=== PATIENT | female | born 1980 ===

== ENCOUNTER 2021-07-19 01:34 | Emergency (ER) | payer OTHER, SELFPAY ==
[2021-07-19 01:38] VITALS: BP 145/90; PULSE 116; RESP 18; TEMP 36.8; O2SAT 98
--- NOTE | 2021-07-19 01:45 | DI.CT_ITS ---
Exam(s) CT CHEST PE CTA EXAM: CT CHEST PE CTA CLINICAL HISTORY: chest pain, tachycardia. TECHNIQUE: Imaging Protocol: Axial CT angiography was performed with multi-slice acquisition and mu lti-planar reconstructions as well as axial, coronal and sagittal MIP reconstructions. CONTRAST MATERIAL: Intravenous: Omnipaque 350 Contrast volume:100 ml COMPARISON: No exams were available for comparison FINDINGS: Pulmonary Arteries: No evidence of filling defect to suggest pulmonary emboli. Tracheobronchial tree: Patent where visualized. Mediastinum and Griselda: No dominant adenopathy or fluid collection. Pulmonary parenchyma: No consolidation or dominant measurable mass. Expiratory changes. Pleura: No effusion or pneumothorax. Heart: The heart is not dilated. No coronary artery calcifications are seen. Aorta: Thoracic aorta non-dilated. No aneurysm. No dissection. Upper abdomen: Suture material at stomach. Bones: Unremarkable for age. IMPRESSION: No evidence of pulmonary embolism or other acute abnormality.. RADIATION DOSE DELIVERED: 451.68mGy.cm Total DLP DATA REPOSITORY: All CT scans at this facility are submitted to the National Radiology Data Registry (NRDR) Dose Index Registry (DIR) with the [employer] (ACR). RADIATION OPTIMIZATION: All CT scans at this facility use at least one of these dose optimization te chniques: automated exposure control; mA and/or kV adjustment per patient size (includes targeted exa ms where dose is matched to clinical indication); or iterative reconstruction.
--- NOTE | 2021-07-19 01:45 | RT.EKG_ITS ---
APPROVED REPORT Exam: Resting ECG Reason for Exam: chest pain Patient Location: E HR:115 bpm ECG Measurements Heart Rate 115 AXIS LA 162 P 55 QRSd 105 QRS 20 QT 331 T 40 QTc 457 Conclusion Sinus tachycardia...rate> 99 no stemi
--- NOTE | 2021-07-19 01:57 | ED.GENADUL_ITS ---
Discharge Plan Disposition Patient Disposition: HOME Condition: Stable Discharge Details Clinical Impression: Palpitations, Chest pain Primary Care Provider: Nisha Tirado ED Provider: Tr Vega Home Meds and New Rx's Prescriptions: Continued levothyroxine 112 mcg Tablet 224 mcg PO DAILY 0RF Discharge Instructions Instructions: Heart Palpitations (ED) Additional Instructions: Your ekg, blood work and cat scan did not show concerning findings at this time follow up as scheduled with your primary care provider next week if you feel more ill, have severe pain or difficulty breathing return to the emergency department Medical Decision Making 41 yo female with hx of hypothyroidism, gastric bypass, prior tubal ligation, who comes in with primary complaint of feeling as though her heart is pounding. She states this has been going on for 3 days and feels like her heart is beating harder than normal and can feel it. Denies any chest pressure. Has also had a mild frontal headache intermittently, not the worst of her life and when they start are not thunderclap or suddenly severe. Denies fevers though today she has felt cold per patient. She denies abdomen pain, rashes, smoking, alcohol or drug use. She arrives stable though mildly tachycardic. She is speaking in full sentences in no distress. She has clear lungs, no murmurs, caox4 with clear speech, CN II-XII. She states when she has a headache it is across the front of her head. Given the palpations will obtain ecg and troponin to evaluate for nstemi/acs though seems unlikely based on description of symptoms, heart score 2. She is tachycardic and given PE could be the cause of her symptoms will obtain CT chest. NOrmal vascular exam and no tearing back pain so doubt dissection. Will also obtain covid test. Her headaches seem most likely due to a tension headache, no findings on history or exam to suggest hemorrhage or quality assurance director infection so do not feel emergent ct imaging of the head indicated or LP indicated. labs and imaging unremarkable and she remains stable, feels better with fluids and HR now 90. Given symptoms have been present for 3 days do not feel delta troponin indicated. She does state she has had some stress/anxiety which could be causing her symptoms. She has a f/u appt with her pcp next , she is stable for d/c and return precautions given Differential Diagnosis Differential Diagnosis: arrythmia, anemia, pe, covid, Imaging Data Radiologic Study: Attestation: I personally reviewed and interpreted this imaging study as follows: Imaging: CT Scan Radiologist's impression: no acute findings Lab Data Lab results reviewed: Yes I reviewed the patient's lab results. ECG Data Attestation: I personally reviewed and interpreted this ECG (s) as follows: Prior ECG tracings: not available for review Interpretation: sinus tachycardia, rate of 115, no acute st t wave ischemic findings HPI General Mode of arrival: ambulatory . Date/Time Provider Initiated Documentation: 07/19/21 01:37 . Limitations to Documentation: no limitations . Information obtained by: patient . History of Present Illness 41 year old F p resents to the emergency department with the chief complaint of palpitations, described as moderate, Patient started experiencing this day(s) (3) and it has been constant. improves with No relieving factors improve symptom(s), No exacerbating factors reported . Patient notes headaches. Patient did receive the following treatments prior to arrival, none Related Data Home Medications Medication Instructions Recorded Confirmed levothyroxine 112 mcg tablet 224 mcg PO DAILY 07/19/21 07/19/21 Allergies Allergy/AdvReac Type Severity Reaction Status Date / Time No Known Allergies Allergy Unverified 07/19/21 01:44 General Stated Complaint: Fever CONSTANTINO: 5 Review of Systems All systems reviewed & are unremarkable except as noted in HPI and below Constitutional Constitutional: Denies fever(s) and Denies weakness Eyes Eyes: Denies loss of vision Cardiovascular Cardiovascular: Denies dyspnea Respiratory Respiratory: Denies dyspnea Gastrointestinal Gastrointestinal: Denies abdominal pain and Denies vomiting Genitourinary Genitourinary: Denies dysuria Musculoskeletal Musculoskeletal: Denies joint swelling Integumentary/Breasts Skin/Breast: Denies rash Neurologic Neurologic: Denies loss of vision and Denies weakness PFSH All Active Problems (Updated 07/19/21 @ 03:53 by Tr Vega MD) Palpitations (Acute) Chest pain (Acute) Social History Smoking/Tobacco Use Status: Never Smoking risk assessment performed?: Yes Alcohol Intake: never Substance use type: does not use Do you feel safe at home: Yes Do you feel safe in your relationship?: Yes Exam Const General: no acute distress Orientation: alert HENMT Head: normal to inspection Ears: external ears normal General nose exam: external nose normal Mouth: moist mucous membranes Eyes General: appearance normal, both eyes and all related structures Neck Neck: normal visual inspection Chest Chest: normal inspection of the chest Resp Effort & Inspection: normal respiratory effort and able to speak in complete sentences Cardio Jugular venous pressure: no JVD Rate: tachycardic GI Palpation: soft and nontender Skin General skin exam: no rashes or lesions noted Neuro General: patient alert and patient oriented x3 Extrem General: normal to inspection Psych Mental Status: mental status grossly normal Course Vital Signs Vital signs: Vital Signs Temperature 36.8 C 07/19/21 01:38 Pulse 116 H 07/19/21 01:38 Respiratory Rate 18 07/19/21 01:38 Blood Pressure 145/90 H 07/19/21 01:38 Pulse Oximetry 98 07/19/21 01:38 Temperature 36.8 C 07/19/21 01:38 Pulse 116 H 07/19/21 01:38 Respiratory Rate 18 07/19/21 01:38 Respiratory Effort 07/19/21 01:43 Blood Pressure 145/90 H 07/19/21 01:38 Blood Pressure Position Sitting 07/19/21 01:38 Pulse Oximetry 98 07/19/21 01:38 Oxygen Delivery Method Room Air 07/19/21 01:38 Oxygen Flow Rate 0 07/19/21 01:38 Pain Level 0 07/19/21 01:38
[2021-07-19] MEDS: Normal Saline 1,000 ML 1000 ML IV (02:08)
[2021-07-19 02:23] LABS: Abs Immature Grans 0.03 10^3/uL (0.0-0.06); Absolute Basophil Count 0.03 10^3/uL (0.0-0.2); Absolute Eosinophil Count 0.02 10^3/uL (0.0-0.7); Absolute Lymphocyte Count 0.75 10^3/uL (1.2-3.4); Absolute Monocyte Count 0.33 10^3/uL (0.1-0.8); Absolute Neutrophil Count 5.95 10^3/uL (1.2-6.7); Basophils % 0.4; Eosinophils % 0.3; HCT 39.2 % (36.0-46.0); HGB 12.9 g/dL (11.2-15.7); Immature Grans % 0.4; Lymphocytes % 10.5; MCH 28.4 pg (27.0-33.0); MCHC 32.9 % (32.0-36.0); MCV 86 fL (80-95); MPV 9.1 fL (8.0-11.0); Monocytes % 4.6; Neutrophils % 83.8; Platelet Count 224 10^3/uL (130-400); RBC 4.54 10^6/uL (3.93-5.22); RDW 11.5 % (11.7-14.6); WBC 7.11 10^3/uL (4.4-10.8)
[2021-07-19 02:32] LABS: ALT 53 U/L (14-59); AST 25 U/L (15-37); Albumin 3.4 g/dL (3.4-5.0); Alkaline Phosphatase 92 U/L (46-116); Anion Gap 9.2 mmol/L (3-11); BUN 10 mg/dL (7-18); Bilirubin, Total 0.8 mg/dL (0.2-1.0); CO2 25.8 mmol/L (21.0-32.0); CREATININE 0.7 mg/dL (0.55-1.02); Calcium 8.2 mg/dL (8.5-10.1); Chloride 105 mmol/L (98-107); Glucose 98 mg/dL (74-106); Potassium 3.9 mmol/L (3.5-5.1); Sodium 140 mmol/L (136-145); Total Protein 6.9 g/dL (6.4-8.2); Troponin I < 50 ng/L (<or=60)
[2021-07-19] MEDS: Omnipaque 350 MG/ML 100 ML BTL IJ (02:50)
--- NOTE | 2021-07-19 03:28 | DI.VRAD_ITS ---
PROCEDURE INFORMATION: Exam: CTA Chest With Contrast Exam date and time: 07/19/2021 2:40 AM Age: 41 years old Clinical indication: Tachycardia; Chest wall pain; Chest pain TECHNIQUE: Imaging protocol: Computed tomographic angiography of the chest with contrast. 3D rendering (Not supervised by radiologist): MIP and/or 3D reconstructed images were created by the technologist. Radiation optimization: All CT scans at this facility use at least one of these dose optimization techniques: automated exposure control; mA and/or kV adjustment per patient size (includes targeted exams where dose is matched to clinical indication); or iterative reconstruction. Contrast material: OMNI 350; Contrast volume: 100 ml; Contrast route: INTRAVENOUS (IV); COMPARISON: No relevant prior studies available. FINDINGS: Pulmonary arteries: No evidence of pulmonary embolism. Aorta: Normal caliber thoracic aorta without dissection or aneurysm. Lungs: No alveolar or ground glass infiltrate. Pleural spaces: No pleural fluid collection. No pneumothorax. Heart: No right ventricular strain. No pericardial effusion. Mediastinal space: Small amount of thymic tissue in the anterior superior mediastinum. Lymph nodes: No enlarged lymph nodes. Bones/joints: Unremarkable for patient age. No acute fracture. Soft tissues: Unremarkable. IMPRESSION: 1. No evidence of pulmonary embolism. 2. No pulmonary infiltrate or pleural fluid collection. Dictated and Authenticated by: Castro Cee MD. Ordering:LYSSA Armando MD
[2021-07-19 03:33] LABS: COVID-19 PCR Negative (Negative); Influenza A PCR Negative (Negative); Influenza B PCR Negative (Negative); RSV PCR Negative (Negative)
[2021-07-19 03:39] LABS: Source Nasopharynx
[2021-07-19] MEDS: Acetaminophen 500 MG TAB 1000 MG PO (03:56)
== END 2021-07-19 04:02 | disposition home or self-care (01) ==
PROVIDERS: Emergency Provider Emergency Medicine; PCP Nurse Practitioner Family
DX: R00.2 Palpitations (principal); R07.9 Chest pain, unspecified; R00.0 Tachycardia, unspecified
CPT/HCPCS: 36415; 71275; 80053; 87637; 93005; 96360; 99284; 99285; 84484; 85025; 93010; J3490

== ENCOUNTER 2021-08-21 16:40 | Outpatient (REF) | payer OTHER, SELFPAY ==
--- NOTE | 2021-08-21 14:55 | PAPFT_PTH ---
PATIENT: Tamera Salcedo LOC: [facility] U#:[id number] AGE/SX: 41/F ROOM: RE08/21/[address]: Chiqui Marshall : 1980 BED: DIS: 08/21/2021 SPEC #: [id number] RECD: 08/21/21 18:16 STATUS: APOLLO REQ #: [id number] ROSY: 08/21/21 14:[address]: Chiqui Marshall DEPT: [facility] Cytology RECD BY: Xochitl Cintron ENTERED: 08/21/21 18:17 SP TYPE: PAPFT OTHR DR: Nisha Tirado Tissues: 1 - CX/ENDOCX FOR PAP SMEARS Procedures: PAP THIN PREP/[facility] Screening HPV DNA PROBE Comments: [id number]
== END 2021-08-21 16:41 | disposition home or self-care (01) ==
LOC: LBN 16:40
PROVIDERS: PCP Nurse Practitioner Family; Visit Provider Advanced Practice Midwife
DX: R30.0 Dysuria (principal); Z12.4 Encounter for screening for malignant neoplasm of cervix; Z11.51 Encounter for screening for human papillomavirus (HPV)
CPT/HCPCS: 88142; 87086; 87624

== ENCOUNTER 2022-03-28 00:04 | Outpatient (CLI) | payer MEDICAID, SELFPAY ==
--- OUTSIDE RECORDS SUMMARY | 2021-10-07 00:03 | XMS_ITS | Encounter Summary ---
:1980 Author Organization [facility] Address [address] [place] [address] Care Team Providers Name Role Phone Unknown, Provider Primary Care Provider Encounter Details Date Type Department Care Team Description 07/26/2021 Lab Requisition [facility] Outr Resulting Lab, Pathology & Laboratory Provider [facility] [address], [place] [address] Social History Tobacco Use Types Packs/Day Years Used Date Never Assessed Sex Assigned at Date Recorded Not on file documented as of this encounter Plan of Treatment Not on filedocumented as of this encounter Procedures Procedure Name Priority Date/Time Associated Comments Diagnosis SPEP WITH Today 07/26/2021 7:24 Results for this IMMUNOTYPING EDT procedure are i n PERFORMABLE the results section. HOLD SST Today 07/26/2021 7:24 Results for this EDT procedure are i n the results section. SPEP WITH Today 07/26/2021 7:24 Results for this IMMUNOTYPING EDT procedure are i n the results section. PROTEIN, TOTAL Today 07/26/2021 7:24 EDT HAPTOGLOBIN Today 07/26/2021 7:24 Results for this EDT procedure are i n the results section. documented in this encounter Results HOLD SST (07/26/2021 7:24 EDT) Pathologist Sig nature Hold Hold [facility] Specimen Blood - Venous blood (substance) Performing Organization Address City/State/ZIP Code Phon e Number [facility] [address] [place] [address] SERVICES SPEP WITH IMMUNOTYPING PERFORMABLE (07/26/2021 7:24 EDT) Albumin % 58.0 55.8 - 66.1 % [facility] SERVICES Albumin g/dL 4.3 3.6 - 5.2 [facility] g/dL LABORATORY SERVICES Alpha-1 % 4.5 2.9 - 4.9 % [facility] SERVICES Alpha-1 g/dL 0.30 0.15 - 0.40 [facility] g/dL LABORATORY SERVICES Alpha-2 % 9.4 7.1 - 11.8 % [facility] Alpha-2 g/dL 0.70 0.50 - 1.00 [facility] g/dL LABORATORY SERVICES Beta % 11.4 8.4 - 13.1 % [facility] Beta g/dL 0.80 0.60 - 1.20 [facility] g/dL LABORATORY SERVICES Gamma % 16.7 11.1 - 18.8 % [facility] SERVICES Gamma g/dL 1.20 0.60 - 1.60 [facility] g/dL LABORATORY SERVICES SPEP Comment No apparent [facility] monoclonal protein LABORATORY seen on serum SERVICES electrophoresisCom ment: See scanned/supplement [place]arna report. Immunotyping, Current [facility] Serum Interpretation: LABORATORY Negative for SERVICES monoclonal immunoglobulins. Reviewed by: Mike Slater MD 07/29/2021 1538 Total Protein 7.4 6.3 - 8.2 [facility] g/dL LABORATORY SERVICES Specimen Blood - Venous blood (substance) Narrative This result has an attachment that is no t available. Performing Organization Address City/State/ZIP Code Phon e Number [facility] [address] [place] [address] SERVICES PROTEIN, TOTAL (07/26/2021 7:24 EDT) Specimen Blood - Venous blood (substance) Performing Organization Address City/State/ZIP Code Phon e Number [facility] [address] [place] [address] SERVICES HAPTOGLOBIN (07/26/2021 7:24 EDT) Pathologist Sig nature Haptoglobin 60 32 - 197 mg/dL [facility] SERVICES Specimen Blood - Venous blood (substance) Performing Organization Address City/State/ZIP Code Phon e Number [facility] [address] [place] [address] SERVICES documented in this encounter Visit Diagnoses Not on filedocumented in this encounter Care Teams Medical Accountant Relationship Specialty Start Date End Date Unknown, Provider, PCP - General 06/21/21 documented as of this encounter
--- OUTSIDE RECORDS SUMMARY | 2021-10-07 00:03 | XMS_ITS | Encounter Summary ---
:1980 Author Organization [facility] Address [address] [place] [address] Care Team Providers Name Role Phone Unknown, Provider Primary Care Provider Encounter Details Date Type Department Care Team Description 08/22/2021 Lab Requisition [facility] Chiqui Marshall ncounter for other Pathology & DANIEL [place] general examination Laboratory Medicine [address] [place] [address] [facility] [id number] [place] [id number] Social History Tobacco Use Types Packs/Day Years Used Date Never Assessed Sex Assigned at Date Recorded Not on file documented as of this encounter Plan of Treatment Not on filedocumented as of this encounter Procedures Procedure Name Priority Date/Time Associated Comments Diagnosis PAP TEST Today 08/21/2021 14:55 Encounter for other Resu lts for this EDT general examination procedur e are in the results section. HUMAN PAPILLOMAVIRUS Today 08/21/2021 14:55 Encounter for ot her Results for this (HPV) DETECTION-HIGH EDT general examination procedure are in RISK TYPES the results section. documented in this encounter Results HUMAN PAPILLOMAVIRUS (HPV) DETECTION-HIGH RISK TYPES (08/21/2021 14:55 EDT) Human Papillomavirus NegativeComment: No Negative [facility] (HPV) Detection-High E6 or E7 mRNA is CENTER LABORATOR Y Types detected from HPV SERVICES types 16,18,31,33,35,39,45 ,51,52,56,58,59,66, and 68 by core piler mediated amplification. Specimen Pap Test - Cervix and/or Endocervix Performing Organization Address City/State/ZIP Code Phon e Number [facility] [address] [place] [address] SERVICES PAP TEST (08/21/2021 14:55 EDT) Specimens A. Cervix and/or [facility] Endocervix , ThinPrep CENTER Imaging System with LABORATORY Manual Evaluation SERVICES Specimen Adequacy Satisfactory for [facility] Evaluation - CENTER transformation zone LABORATORY component present SERVICES General Negative for [facility] Categorization intraepithelial CENTER lesion or malignancy LABORATORY SERVICES Descriptive Reactive cellular [facility] Diagnosis changes associated CENTER with inflammation LABORATORY present (includes SERVICES repair). Attestation By the signature below, the attending physician certifies that they have personally conducted a gross and/or microscopic [facility] Electronically examination of the described specimens and rendered or confirmed the above diagnosis. CENTER signed by PREET León M D on SERVICES 08/30/2021 at 14 11 Clinical History SEE BELOW [facility] SERVICES HPV The result for the Human Pap illomavirus (HPV) Detection-High Risk Types is Negative. No E6 or E7 mRNA is detected from HPV types 16,18,31,33,35,39,45,51,52,56,58,59,66, and 68 by core piler mediated [facility] amplification.Testing was pe rformed on specimen [id number] and was resulted on 08/30/2021 1358 EDT by PATI, LAB INSTRUMENT RESULTS IN [facility] SERVICES Performing Lab [facility] SERVICES Scanned Images [facility] SERVICES Specimen Pap Test - Cervix and/or Endocervix Performing Organization Address City/State/ZIP Code Phon e Number [facility] [address] [place] [address] SERVICES documented in this encounter Visit Diagnoses Diagnosis Encounter for other general examination documented in this encounter Care Teams Diet Kitchen Cook Relationship Specialty Start Date End Date Unknown, Provider, PCP - General 06/21/21 documented as of this encounter
--- OUTSIDE RECORDS SUMMARY | 2021-10-07 00:03 | XMS_ITS | Clinical Summary ---
:1980 Author Organization [facility] Address [address] [place] [address] Care Team Providers Name Role Phone Unknown, Provider Primary Care Provider Encounters Date Type Specialty Care Team Description 08/22/2021 Lab Requisition Clinical Laboratory Chiqui Marshall Encounter for other DANIEL Hayward general examina tion 07/26/2021 Lab Requisition Clinical Laboratory Outr Resulting Lab, Provider from Last 3 Months Social History Tobacco Use Types Packs/Day Years Used Date Never Assessed Sex Assigned at Date Recorded Not on file Plan of Treatment Health Maintenance Due Date Last Done Comments Hepatitis C Screen 1980 COVID-19 Vaccine (#1) 01/23/1985 Procedures Procedure Name Priority Date/Time Associated Comments Diagnosis PAP TEST Today 08/21/2021 14:55 Encounter for other Resu lts for this EDT general examination procedur e are in the results section. HUMAN PAPILLOMAVIRUS Today 08/21/2021 14:55 Encounter for ot her Results for this (HPV) DETECTION-HIGH EDT general examination procedure are in RISK TYPES the results section. HOLD SST Today 07/26/2021 7:24 Results for this EDT procedure are i n the results section. SPEP WITH IMMUNOTYPING Today 07/26/2021 7:24 Re sults for this PERFORMABLE EDT procedure are i n the results section. PROTEIN, TOTAL Today 07/26/2021 7:24 EDT HAPTOGLOBIN Today 07/26/2021 7:24 Results for this EDT procedure are i n the results section. SPEP WITH IMMUNOTYPING Today 07/26/2021 7:24 Re sults for this EDT procedure are i n the results section. from Last 3 Months Results PAP TEST (08/21/2021 14:55 EDT) Specimens A. Cervix and/or [facility] Endocervix , ThinPrep CENTER Imaging System with LABORATORY Manual Evaluation SERVICES Specimen Adequacy Satisfactory for [facility] Evaluation - CENTER transformation zone LABORATORY component present SERVICES General Negative for [facility] Categorization intraepithelial CENTER lesion or malignancy LABORATORY SERVICES Descriptive Reactive cellular [facility] Diagnosis changes associated CENTER with inflammation LABORATORY present (includes SERVICES repair). Attestation By the signature below, the attending physician certifies that they have personally conducted a gross and/or microscopic [facility] ICA Electronically examination of the described specimens and rendered or confirmed the above diagnosis. CENTER signed by PREET León M D on SERVICES 08/30/2021 at 14 11 Clinical History SEE BELOW [facility] LABORATORY SERVICES HPV The result for the Human Pap illomavirus (HPV) Detection-High Risk Types is Negative. No E6 or E7 mRNA is detected from HPV types 16,18,31,33,35,39,45,51,52,56,58,59,66, and 68 by fishing vessel deckhand mediated [facility] amplification.Testing was pe rformed on specimen [id number] and was resulted on 08/30/2021 1358 EDT by PATI, LAB INSTRUMENT RESULTS IN [facility] LABORATORY SERVICES Performing Lab [facility] LABORATORY SERVICES Scanned Images [facility] LABORATORY SERVICES Specimen Pap Test - Cervix and/or Endocervix Performing Organization Address City/[facility]/ZIP Code Phon e Number [facility]OR[facility] [address] [place] [address] SERVICES HUMAN PAPILLOMAVIRUS (HPV) DETECTION-HIGH RISK TYPES (08/21/2021 14:55 EDT) Human Papillomavirus NegativeComment: No Negative [facility] (HPV) Detection-High E6 or E7 mRNA is CENTER LABORATOR Y Types detected from HPV SERVICES types 16,18,31,33,35,39,45 ,51,52,56,58,59,66, and 68 by fishing vessel deckhand mediated amplification. Specimen Pap Test - Cervix and/or Endocervix Performing Organization Address City/[facility] Phon e Number [facility] [address] [place] [address] SERVICES SPEP WITH IMMUNOTYPING PERFORMABLE (07/26/2021 7:24 EDT) Albumin % 58.0 55.8 - 66.1 % [facility] LABORATORY SERVICES Albumin g/dL 4.3 3.6 - 5.2 [facility] g/dL LABORATORY SERVICES Alpha-1 % 4.5 2.9 - 4.9 % [facility] LABORATORY SERVICES Alpha-1 g/dL 0.30 0.15 - 0.40 [facility] g/dL LABORATORY SERVICES Alpha-2 % 9.4 7.1 - 11.8 % [facility] LABORATORY SERVICES Alpha-2 g/dL 0.70 0.50 - 1.00 [facility] g/dL LABORATORY SERVICES Beta % 11.4 8.4 - 13.1 % [facility] LABORATORY SERVICES Beta g/dL 0.80 0.60 - 1.20 [facility] g/dL LABORATORY SERVICES Gamma % 16.7 11.1 - 18.8 % [facility] LABORATORY SERVICES Gamma g/dL 1.20 0.60 - 1.60 [facility] g/dL LABORATORY SERVICES SPEP Comment No apparent [facility] monoclonal protein LABORATORY seen on serum SERVICES electrophoresisCom ment: See scanned/supplement aparna report. Immunotyping, Current [facility] Serum Interpretation: LABORATORY Negative for SERVICES monoclonal immunoglobulins. Reviewed by: Mike Slater MD 07/29/2021 1538 Total Protein 7.4 6.3 - 8.2 [facility] g/dL LABORATORY SERVICES Specimen Blood - Venous blood (substance) Narrative This result has an attachment that is no t available. Performing Organization Address City/State/ZIP Code Phon e Number [facility] [address] [place] [address] SERVICES HOLD SST (07/26/2021 7:24 EDT) Pathologist Sig nature Hold Hold [facility] LABORATOR Y SERVICES Specimen Blood - Venous blood (substance) Performing Organization Address City/State/ZIP Code Phon e Number [facility] [address] [place] [address] SERVICES PROTEIN, TOTAL (07/26/2021 7:24 EDT) Specimen Blood - Venous blood (substance) Performing Organization Address City/State/ZIP Code Phon e Number [facility] [address] [place] [address] SERVICES HAPTOGLOBIN (07/26/2021 7:24 EDT) Pathologist Sig nature Haptoglobin 60 32 - 197 mg/dL [facility] LABORAT ORY SERVICES Specimen Blood - Venous blood (substance) Performing Organization Address City/State/ZIP Code Phon e Number [facility] [address] [place] [address] SERVICES from Last 3 Months Care Teams [employer] Relationship Specialty Start Date End Date Unknown, Provider, PCP - General 06/21/21
--- NOTE | 2022-03-28 07:45 | DI.MAMMO_ITS ---
Exam(s) MAMMO SCREENING EXAM: MAMMO SCREENING CLINICAL HISTORY: screening,Z12.39 TECHNIQUE: Mammograms were interpreted according to the usual protocol including computer analysis w [employer] CAD system, tomosynthesis and C-view imaging. COMPARISON: None. Baseline examination. FINDINGS: The breasts are composed of mainly fatty density , Breast Density category A. No suspicious masses or suspicious microcalcifications are seen. No skin thickening or abnormal axillary lymph nodes are seen. IMPRESSION: BI-RADS Category 1, Negative mammogram Yearly screening mammography is recommended. Breast Density - Category A, fatty density. A negative radiographic report should not delay biopsy if a dominant or clinically suspicious mass is present. Up to ten percent of cancers are not identified on mammography. A negative report may reinforce clinical impression. Adenosis and dense breasts may obscure an underlying neoplasm. False positive reports average 6 to 10%. Patient will receive a letter notifying them of these results.
== END 2022-03-28 00:24 ==
PROVIDERS: PCP Nurse Practitioner Family; Visit Provider Advanced Practice Midwife
DX: Z12.31 Encounter for screening mammogram for malignant neoplasm of breast (principal)
CPT/HCPCS: 77063; 77067

== ENCOUNTER 2022-12-25 04:56 | Outpatient (CLI) | payer MEDICAID, SELFPAY ==
[2022-12-25 08:00] LABS: Abs Immature Grans 0.01 10^3/uL (0.0-0.06); Absolute Basophil Count 0.05 10^3/uL (0.0-0.2); Absolute Eosinophil Count 0.09 10^3/uL (0.0-0.7); Absolute Lymphocyte Count 2.07 10^3/uL (1.2-3.4); Absolute Monocyte Count 0.51 10^3/uL (0.1-0.8); Absolute Neutrophil Count 2.87 10^3/uL (1.2-6.7); Basophils % 0.9; Eosinophils % 1.6; HCT 34.3 % (36.0-46.0); HGB 10.8 g/dL (11.2-15.7); Immature Grans % 0.2; MCH 25.1 pg (27.0-33.0); MCHC 31.5 % (32.0-36.0); MCV 80 fL (80-95); MPV 9.4 fL (8.0-11.0); Monocytes % 9.1; Neutrophils % 51.2; Platelet Count 375 10^3/uL (130-400); RDW 14.8 % (11.7-14.6); RDW-SD 42.7 fL
[2022-12-25 08:17] LABS: Hemoglobin A1C 5.2 % (<5.7)
[2022-12-25 08:46] LABS: ALT 36 U/L (14-59); AST 16 U/L (15-37); Albumin 3.6 g/dL (3.4-5.0); Alkaline Phosphatase 93 U/L (46-116); Anion Gap 9.5 mmol/L (3-11); BUN 11 mg/dL (7-18); Bilirubin, Total 0.3 mg/dL (0.2-1.0); CO2 21.5 mmol/L (21.0-32.0); CREATININE 0.8 mg/dL (0.55-1.02); Calcium 8.8 mg/dL (8.5-10.1); Calculated LDL 63 mg/dL (<100); Chloride 107 mmol/L (98-107); Cholesterol 141 mg/dL (<200); Estimated GFR 94.28 (mL/min/1.73m2); Ferritin 5 ng/mL (8-252); Folate 5.3 ng/mL (8.6-20.0); Glucose 91 mg/dL (74-106); HDL Cholesterol 65 mg/dL (40-60); Potassium 3.8 mmol/L (3.5-5.1); Sodium 138 mmol/L (136-145); TSH (W/Ref FT4) 1.33 uIU/mL (0.36-3.74); Total Protein 7.5 g/dL (6.4-8.2); Triglyceride 67 mg/dL (<150); Vitamin B12 808 pg/mL (193-986)
[2022-12-25 08:47] LABS: Vitamin D 25 Total 26.8 ng/mL (30-100)
[2022-12-25 09:07] LABS: Iron 18 ug/dL (50-170); Total Iron Binding Capacity 419 ug/dL (250-450); Transferrin Sat 4 % (15-50)
[2022-12-25 21:51] LABS: Parathyroid Hormone,Intact 82 pg/mL (19-88)
[2022-12-26 10:22] LABS: Prealbumin 15 mg/dL (20-40)
[2022-12-26 11:10] LABS: HIV-1/2 Ag & Ab Screen Negative (Negative)
[2022-12-26 11:31] LABS: Hepatitis C Ab w Rflx HCV PCR Negative (Negative)
[2022-12-27 10:57] LABS: Selenium, Serum 120 mcg/L (110-165)
[2022-12-27 12:03] LABS: Copper, Serum 101 mcg/dL (77-206); Zinc, S 64 mcg/dL (60-106)
[2022-12-29 16:06] LABS: Vitamin E, Serum 6.2 mg/L (5.5 - 17.0)
[2022-12-30 10:14] LABS: Free Retinol (Vitamin A) 25.1 mcg/dL (32.5-78.0)
[2022-12-30 23:35] LABS: Thiamine (Vitamin B1), WB 73 nmol/L (70-180)
[2022-12-31 10:07] LABS: Vitamin K1 <0.03 ng/mL (0.10-2.20)
== END 2022-12-25 04:57 | disposition home or self-care (01) ==
LOC: LBO 04:56
PROVIDERS: PCP Nurse Practitioner; Referring Provider Nurse Practitioner Family; Visit Provider Nurse Practitioner Family
DX: Z98.84 Bariatric surgery status (principal); Z11.59 Encounter for screening for other viral diseases; Z13.1 Encounter for screening for diabetes mellitus; E03.9 Hypothyroidism, unspecified; Z13.220 Encounter for screening for lipoid disorders; E83.42 Hypomagnesemia; D64.9 Anemia, unspecified; Z11.4 Encounter for screening for human immunodeficiency virus [HIV]; E66.9 Obesity, unspecified; Z83.3 Family history of diabetes mellitus
CPT/HCPCS: 36415; 80053; 80061; 82306; 82525; 84630; 86803; 87389; 82607; 82728; 82746; 83036; 83540; 83550; 83735; 83970; 84134; 84255; 84425; 84443; 84446; 84590; 84597; 85025

== ENCOUNTER 2023-01-16 00:56 | Outpatient (RCR) | payer MEDICAID, SELFPAY ==
[2023-01-09] MEDS: Normal Saline Flush 10 ML SYR IVP (11:07)
[2023-01-09] MEDS: IRON SUCROSE COMPLEX 200 MG in Normal Saline 100 ML 440 MG IVPB (11:07)
[2023-01-16] MEDS: IRON SUCROSE COMPLEX 200 MG in Normal Saline 100 ML 440 MG IVPB (10:57)
[2023-01-16] MEDS: Normal Saline Flush 10 ML SYR IVP (10:58)
== END 2023-01-20 23:59 | disposition home or self-care (01) ==
LOC: INF 00:56
PROVIDERS: PCP Nurse Practitioner; Visit Provider Nurse Practitioner
DX: D64.9 Anemia, unspecified (principal)
CPT/HCPCS: 96365; 96372; J1756

== ENCOUNTER 2023-02-06 01:48 | Outpatient (RCR) | payer MEDICAID, SELFPAY ==
[2023-01-21] MEDS: IRON SUCROSE COMPLEX 200 MG in Normal Saline 100 ML 440 MG IVPB (11:07)
[2023-01-21] MEDS: Normal Saline Flush 10 ML SYR IVP (11:08)
[2023-01-30] MEDS: Normal Saline Flush 10 ML SYR IVP (10:56)
[2023-01-30] MEDS: IRON SUCROSE COMPLEX 200 MG in Normal Saline 100 ML 440 MG IVPB (11:10)
[2023-02-06] MEDS: IRON SUCROSE COMPLEX 200 MG in Normal Saline 100 ML 440 MG IVPB (11:03)
[2023-02-06] MEDS: Normal Saline Flush 10 ML SYR IVP (11:03)
== END 2023-02-19 23:59 | disposition home or self-care (01) ==
LOC: INF 01:48
PROVIDERS: PCP Nurse Practitioner; Visit Provider Nurse Practitioner
DX: D64.9 Anemia, unspecified (principal); E61.1 Iron deficiency
CPT/HCPCS: 96365; J1756

== ENCOUNTER 2025-01-17 01:22 | Outpatient (CLI) | payer MEDICAID, SELFPAY ==
[2025-01-17 08:27] LABS: Abs Immature Grans 0.04 10^3/uL (0.0-0.06); HCT 38.0 % (36.0-46.0); HGB 11.6 g/dL (11.2-15.7); Immature Grans % 0.6 %; MCH 24.0 pg (27.0-33.0); MCHC 30.5 % (32.0-36.0); MCV 79 fL (80-95); MPV 10.9 fL (8.0-11.0); RBC 4.84 10^6/uL (3.93-5.22); RDW 16.6 % (11.7-14.6); RDW-SD 47.5 fL; WBC 6.66 10^3/uL (4.4-10.8)
[2025-01-17 08:35] LABS: Hemoglobin A1C 5.3 % (<5.7)
[2025-01-17 08:53] LABS: Anisocytosis 1+; Microcytosis 2+
[2025-01-17 09:19] LABS: Iron 28 ug/dL (50-170)
[2025-01-17 09:38] LABS: ALT 45 U/L (14-59); AST 31 U/L (15-37); Albumin 3.6 g/dL (3.4-5.0); Alkaline Phosphatase 116 U/L (46-116); Anion Gap 10.4 mmol/L (3-11); BUN 18 mg/dL (7-18); Bilirubin, Total 0.6 mg/dL (0.2-1.0); CO2 23.6 mmol/L (21.0-32.0); Calcium 8.8 mg/dL (8.5-10.1); Calculated LDL 56 mg/dL (<100); Chloride 105 mmol/L (98-107); Cholesterol 126 mg/dL (<200); Estimated GFR 113.44 (mL/min/1.73m2); Ferritin 8 ng/mL (8-252); Glucose 82 mg/dL (74-106); HDL Cholesterol 59 mg/dL (>or=50); Potassium 4.3 mmol/L (3.5-5.1); Sodium 139 mmol/L (136-145); TSH (W/Ref FT4) 0.29 uIU/mL (0.36-3.74); Total Protein 7.5 g/dL (6.4-8.2); Triglyceride 55 mg/dL (<150)
[2025-01-18 10:06] LABS: Transferrin 326 mg/dL (201-352)
[2025-01-20 08:45] LABS: Lab Add On Test DONE
[2025-01-20 09:46] LABS: Vitamin D 25 Total 75 ng/mL (30-100)
== END 2025-01-17 01:23 | disposition home or self-care (01) ==
LOC: LBO 01:22
PROVIDERS: PCP Nurse Practitioner Family; Visit Provider Nurse Practitioner
DX: E61.1 Iron deficiency; D64.9 Anemia, unspecified; E03.9 Hypothyroidism, unspecified; E66.9 Obesity, unspecified; Z13.220 Encounter for screening for lipoid disorders
CPT/HCPCS: 36415; 80053; 80061; 82306; 82728; 83036; 83540; 84439; 84443; 84466; 85025

== ENCOUNTER → 2025-02-01 01:19 | Outpatient (CLI) | payer MEDICAID, SELFPAY ==
--- NOTE | 2025-02-01 06:45 | DI.RAD_ITS ---
Exam(s) XR FOOT RT COMPLETE EXAM: XR FOOT RT COMPLETE CLINICAL HISTORY: RT FOOT PAIN, M79.671. TECHNIQUE: 2D digital imaging was performed. Three views. COMPARISON: No exams were available for comparison FINDINGS: BONES: No acute fracture is present. No bony destructive lesion is seen. JOINTS: No dislocation present. There are no significant degenerative changes SOFT TISSUE: Normal. IMPRESSION: Unremarkable radiographs of the right foot. DATA REPOSITORY: RADIATION DOSE DELIVERED:
== END ==
LOC: DI 01:19
PROVIDERS: PCP Nurse Practitioner Family; Visit Provider Nurse Practitioner Family
DX: M79.671 Pain in right foot (principal)
CPT/HCPCS: 73630